=== PATIENT | female | born 1980 | race Caucasian/White ===

== ENCOUNTER 2016-08-28 18:28 | Emergency (ER) | payer SELFPAY ==
[~2016-08-28] VITALS: Ht 154.9 cm; Wt 52.9 kg
[~2016-08-28 18:28] MED LIST: DOXY100C PO; PAXI20TA PO; SUBO8MIS SL
[2016-08-28 18:34] VITALS: BP 123/73; PULSE 120; RESP 16; TEMP 99; O2SAT 97
[2016-08-28] MEDS ORDERED: BUPR4MIS SL (18:48)
[2016-08-28] MEDS ORDERED: SODIUM CHLOR 0.9% 1000 ML INJ 1,000 ML IV ONE ×2 (19:30→22:00)
[2016-08-28] MEDS ORDERED: LIDOCAINE HCL 1% PF 30 ML VIAL INFIL ONE (19:30)
[2016-08-28] MEDS ORDERED: DOXYCYCLINE INJ 100 MG in SODIUM CHLORIDE 0.9% INJ 100 ML IV ONE (19:30)
--- NOTE | 2016-08-28 19:34 | PD ---
HPI Chief Complaint: Skin Problem Time Seen by Provider: 19:28 Travel History International Travel<30 days: No Contact w/Intl Traveler<30days: No Traveled to known affect area: No History of Present Illness HPI 35-year-old female presents to the emergency department for complaint of swelling and redness and tenderness to the radial dorsal aspect of the right hand. Patient has a history of IV drug abuse. Patient was just in the emergency department 08/12/16 with an IV DA site associated abscess. Patient was placed on doxycycline. Patient reports the left forearm abscess has resolved and as she has been off antibiotic for the past 2 days the area that was slightly swollen over the proximal dorsal right thumb and hand area has not increased in size tenderness and fluctuance. Patient denies fever chills nausea vomiting ascending erythema or right axillary adenopathy. Patient continues to use IV drugs. Patient rates her pain 7/10 in intensity. Patient has multiple antibiotic allergies. Patient is typically done well on doxycycline. PFSH Past Medical History Narrative Medical IV drug abuse recurrent abscesses anxiety depression lymphoma s/p chemotherapy seizures partial ileum resection and appendectomy IV drug abuse tobacco use nursing notes reviewed Anemia: Yes Anxiety: Yes Depression: Yes Heart Rhythm Problems: Yes (HEART MURMUR) Cancer: Yes (gastric (BURKET'S LYMPHOMA)) Cardiovascular Problems: Yes Chemotherapy: Yes (Age 17 ) Diminished Hearing: No Endocrine: No Gastrointestinal Disorders: Yes Genitourinary: Yes (GENITAL HERPES) Immune Disorder: No Kidney Stones: Yes Musculoskeletal: Yes (fractured L2 and sacrum) Neurologic: Yes Psychiatric: Yes Reproductive: No Respiratory: No Immunizations Current: Yes Pneumonia: Yes Seizures: Yes (MEDICATION RELATED) Shingles: Yes Influenza Vaccination: No ?: Not LMP: ONE WEEK AGO : 0 Past Surgical History Abdominal Surgery: Yes (ILLEUM RESECTION 1998 LYMPHOMIA. REMOVED 2 1/2 FT OF SMALL INTESTINE) Appendectomy: Yes Body Medical Devices: heart murmur Other Surgery: Yes Social History Alcohol Use: No Tobacco Use: Yes (1/2 PPD) Substance Use: Yes (IV DILAUDID) Allergies-Medications (Allergen,Severity, Reaction): Coded Allergies: Azithromycin (Verified Allergy, Severe, HIVES, 08/28/16) Bactrim (Verified Allergy, Severe, SCOTTIE JOE SYNDROME, 08/28/16) Ceftazidime (Verified Allergy, Severe, SCOTTIE-JOE SYNDROME, 08/28/16) Clindamycin (Verified Allergy, Severe, HIVES, 08/28/16) Contrast Media (Verified Allergy, Severe, THROAT CLOSE, 08/28/16) Rifampin (Verified Allergy, Severe, SCOTTIE-JOE SYNDROME, 08/28/16) Primaxin (Verified Allergy, Mild, UNSURE, 08/28/16) Tramadol (Verified Allergy, Unknown, seizure with ssri, 08/28/16) Morphine (Verified Adverse Reaction, Severe, NAUSEA, 08/28/16) PT STATES SEVERE NAUSEA *MDRO Multi-Drug Resistant Organism (Verified Adverse Reaction, Unknown, 08/12/16) MRSA (hand wound) - 01/2016 Reported Meds & Prescriptions Reported Meds & Active Scripts Active Doxycycline Hyclate 100 Mg Cap 100 Mg PO BID Reported Suboxone Sublingual Film (Buprenorphine-Naloxone Sublingual Film) 4-1 Mg Film 1 Film SL BID Unique ID number required: Paxil (Paroxetine HCl) 20 Mg Tab 20 Mg PO DAILY Review of Systems Except as stated in HPI: all other systems reviewed are Neg General / Constitutional: No: Fever, Chills HENT: No: Congestion Cardiovascular: No: Chest Pain or Discomfort Respiratory: No: Shortness of Breath Gastrointestinal: No: Nausea, Vomiting, Diarrhea, Abdominal Pain Genitourinary: No: Flank Pain Musculoskeletal: No: Myalgias, Arthralgias Skin: Positive Rash, Positive Lumps Neurologic: No: Weakness Psychiatric: Positive: Substance Abuse, No: Anxiety Hematologic/Lymphatic: No: Lymph Node Enlargement Physical Exam Narrative GENERAL: Well-developed well-nourished disheveled female in no acute distress no respiratory distress SKIN: Warm and dry. HEAD: Normocephalic. EYES: No scleral icterus. No injection or drainage. NECK: Supple, trachea midline. No JVD or lymphadenopathy. CARDIOVASCULAR: Regular rate and rhythm without murmurs, gallops, or rubs. RESPIRATORY: Breath sounds equal bilaterally. No accessory muscle use. GASTROINTESTINAL: Abdomen soft, non-tender, nondistended. MUSCULOSKELETAL: No cyanosis, or edema. Attention right hand just proximal to the first MCP at the dorsum of the right hand radial aspect there is area of erythema with induration and central fluctuance range of motion is decreased secondary to pain but has intact range of motion otherwise and sensory exam intact digit capillary refill brisk and less than 2 seconds. No ascending erythema no axillary lymphadenopathy. BACK: Nontender without obvious deformity. No CVA tenderness. Data Data Last Documented VS Vital Signs Date Time Temp Pulse Resp B/P Pulse Ox O2 Delivery O2 Flow Rate FiO2 08/28/16 18:49 120 16 08/28/16 18:34 99.0 123/73 97 Orders Basic Metabolic Panel (Bmp) (08/28/16 19:28) Complete Blood Count With Diff (08/28/16 19:28) Blood Culture (08/28/16 19:28) Wound Culture And Gram Stain (08/28/16 19:28) Iv Access Insert/Monitor (08/28/16 19:28) Doxycycline Inj (Vibramycin Inj) (08/28/16 19:30) Sodium Chlor 0.9% 1000 Ml Inj (Ns 1000 M (08/28/16 19:30) Ed Urine Pregnancytest Poc (08/28/16 19:28) Lidocaine Pf 1% Inj (Xylocaine-Mpf 1% In (08/28/16 19:30) Drug Screen, Random Urine (08/28/16 19:28) Hand, Limited (2vws) (08/28/16 ) Sodium Chlor 0.9% 1000 Ml Inj (Ns 1000 M (08/28/16 22:00) Labs Laboratory Tests Test 08/28/16 08/28/16 19:45 20:20 Urine Opiates Screen NEG Urine Barbiturates Screen NEG Urine Amphetamines Screen NEG Urine Benzodiazepines Screen NEG Urine Cocaine Screen POS Urine Cannabinoids Screen NEG White Blood Count 8.3 TH/MM3 Red Blood Count 1.84 MIL/MM3 Hemoglobin 8.1 GM/DL Hematocrit 23.6 % Mean Corpuscular Volume 128.0 FL Mean Corpuscular Hemoglobin 43.8 PG Mean Corpuscular Hemoglobin 34.3 % Concent Red Cell Distribution Width 21.3 % Platelet Count 512 TH/MM3 Mean Platelet Volume 8.1 FL Neutrophils (%) (Auto) 56.8 % Lymphocytes (%) (Auto) 29.4 % Monocytes (%) (Auto) 5.4 % Eosinophils (%) (Auto) 6.8 % Basophils (%) (Auto) 1.6 % Neutrophils # (Auto) 4.8 TH/MM3 Lymphocytes # (Auto) 2.4 TH/MM3 Monocytes # (Auto) 0.4 TH/MM3 Eosinophils # (Auto) 0.6 TH/MM3 Basophils # (Auto) 0.1 TH/MM3 CBC Comment AUTO DIFF Differential Comment AUTO DIFF CONFIRMED Platelet Estimate HIGH Platelet Morphology Comment NORMAL Ovalocytes 1+ Sodium Level 139 MEQ/L Potassium Level 4.2 MEQ/L Chloride Level 105 MEQ/L Carbon Dioxide Level 26.5 MEQ/L Anion Gap 8 MEQ/L Blood Urea Nitrogen 14 MG/DL Creatinine 0.84 MG/DL Estimat Glomerular Filtration 78 ML/MIN Rate Random Glucose 76 MG/DL Calcium Level 8.3 MG/DL MDM Medical Decision Making Medical Screen Exam Complete: Yes Emergency Medical Condition: Yes Medical Record Reviewed: Yes Interpretation(s) Last Impressions Hand X-Ray 08/28/16 0000 Signed Impressions: Service Date/Time: Sunday, August 28, 2016 19:41 - CONCLUSION: Negative for radiopaque foreign body or fracture. Scottie Hook MD FACR Laboratory Tests Test 08/28/16 08/28/16 19:45 20:20 Urine Opiates Screen NEG Urine Barbiturates Screen NEG Urine Amphetamines Screen NEG Urine Benzodiazepines Screen NEG Urine Cocaine Screen POS Urine Cannabinoids Screen NEG White Blood Count 8.3 TH/MM3 Red Blood Count 1.84 MIL/MM3 Hemoglobin 8.1 GM/DL Hematocrit 23.6 % Mean Corpuscular Volume 128.0 FL Mean Corpuscular Hemoglobin 43.8 PG Mean Corpuscular Hemoglobin 34.3 % Concent Red Cell Distribution Width 21.3 % Platelet Count 512 TH/MM3 Mean Platelet Volume 8.1 FL Neutrophils (%) (Auto) 56.8 % Lymphocytes (%) (Auto) 29.4 % Monocytes (%) (Auto) 5.4 % Eosinophils (%) (Auto) 6.8 % Basophils (%) (Auto) 1.6 % Neutrophils # (Auto) 4.8 TH/MM3 Lymphocytes # (Auto) 2.4 TH/MM3 Monocytes # (Auto) 0.4 TH/MM3 Eosinophils # (Auto) 0.6 TH/MM3 Basophils # (Auto) 0.1 TH/MM3 CBC Comment AUTO DIFF Differential Comment AUTO DIFF CONFIRMED Platelet Estimate HIGH Platelet Morphology Comment NORMAL Ovalocytes 1+ Sodium Level 139 MEQ/L Potassium Level 4.2 MEQ/L Chloride Level 105 MEQ/L Carbon Dioxide Level 26.5 MEQ/L Anion Gap 8 MEQ/L Blood Urea Nitrogen 14 MG/DL Creatinine 0.84 MG/DL Estimat Glomerular Filtration 78 ML/MIN Rate Random Glucose 76 MG/DL Calcium Level 8.3 MG/DL Differential Diagnosis Abscess, cellulitis, tenosynovitis, retained foreign body, IV drug abuse Narrative Course IV access obtained patient administered IV doxycycline as well as blood cultures and specimen collected from abscess site time of I&D Please refer to PAs procedure dictation Patient here is hemodynamically stable except for tachycardia associated with cocaine abuse; long discussion with patient with significant other at bedside conducted with patient regarding her high risk for for outcome with ongoing current abusive behavior with polysubstance use and repetitive injections and repetitive secondary infections. Patient is otherwise stable at this time for outpatient management with oral antibiotic. Procedures EKG Prior to Arrival: No Diagnosis Primary Impression: Abscess of hand, right Additional Impressions: History of incision and drainage Cocaine abuse Referrals: Primary Care Physician 2 days [facility] for appointment Patient Instructions: General Instructions Additional Instructions: Discontinue substance abuse Follow-up with [facility] for detox resources Complete course of antibiotic as prescribed Take acetaminophen/Tylenol as tolerated for fever 100.4F or greater or for minor pain Return to the emergency department for any concerns or change condition Recommend two-day wound check for packing removal Follow-up with primary care provider Med/Other Pt SpecificInfo: Prescription(s) given Scripts Doxycycline Hyclate 100 Mg Pbs007 Mg PO BID #20 CAP Ref 0 Prov:Shanae Sexton MD 08/28/16 Disposition: 01 DISCHARGE HOME Condition: Stable Shanae Sexton MD Aug 28, 2016 19:34
--- NOTE | 2016-08-28 19:51 | RADHPO ---
EXAM DATE/TIME: 08/28/2016 19:41 [facility] COMPARISON: No previous studies available for comparison. INDICATIONS : Edema, base of the 1st metacarpal, foreign body MEDICAL HISTORY : None. SURGICAL HISTORY : None. ENCOUNTER: Initial ACUITY: 1 week PAIN SCORE: 6/10 LOCATION: Right thumb base FINDINGS: There is soft tissue swelling without radiopaque foreign body or fracture. CONCLUSION: Negative for radiopaque foreign body or fracture. Scottie Hook MD FACR on August 28, 2016 at 19:49 Board Certified Radiologist. This report was verified electronically.
--- NOTE | 2016-08-28 20:09 | PD ---
Physical Exam Time Seen by Provider: 20:09 Narrative I was asked by Dr. Sexton to perform an incision and drainage on this patient. Please see her note for further details. Data Data Last Documented VS Vital Signs Date Time Temp Pulse Resp B/P Pulse Ox O2 Delivery O2 Flow Rate FiO2 08/28/16 18:49 120 16 08/28/16 18:34 99.0 123/73 97 Orders Basic Metabolic Panel (Bmp) (08/28/16 19:28) Complete Blood Count With Diff (08/28/16 19:28) Blood Culture (08/28/16 19:28) Wound Culture And Gram Stain (08/28/16 19:28) Iv Access Insert/Monitor (08/28/16 19:28) Doxycycline Inj (Vibramycin Inj) (08/28/16 19:30) Sodium Chlor 0.9% 1000 Ml Inj (Ns 1000 M (08/28/16 19:30) Ed Urine Pregnancytest Poc (08/28/16 19:28) Lidocaine Pf 1% Inj (Xylocaine-Mpf 1% In (08/28/16 19:30) Drug Screen, Random Urine (08/28/16 19:28) Hand, Limited (2vws) (08/28/16 ) Labs Laboratory Tests Test 08/28/16 19:45 Urine Barbiturates Screen NEG Urine Amphetamines Screen NEG Urine Benzodiazepines Screen NEG Urine Cannabinoids Screen NEG MDM Medical Record Reviewed: Yes Supervised Visit with AP: Yes Procedures Procedure Narrative INCISION AND DRAINAGE OF ABSCESS: The area was prepped and was sterilely draped. A subcutaneous wheal of 1% lidocaine with epinephrine with a total number 3 mL was used to anesthetize the area properly. A number 11 scalpel was used to make a 1 cm incision across the area of the abscess. The abscess was drained, complex loculations were broken down, and irrigated with normal saline. Cultures were obtained. Sterile dressing applied. Suly Jackson Aug 28, 2016 20:09
[2016-08-28 20:39] LABS: AMPHETAMINE, URINE NEG (NEG); BARBITURATES, URINE NEG (NEG)
[2016-08-28 20:46] LABS: COCAINE, URINE POS (NEG)
[2016-08-28 20:48] LABS: BICARBONATE 26.5 MEQ/L (21.0-32.0)
[2016-08-28 20:52] LABS: AUTOMATED NEUTROPHIL # 4.8 TH/MM3 (1.8-7.7); BASOPHIL # 0.1 TH/MM3 (0-0.2); BASOPHIL % 1.6 % (0.0-2.0); EOSINOPHIL # 0.6 TH/MM3 (0-0.4); EOSINOPHIL % 6.8 % (0.0-4.0); HEMATOCRIT 23.6 % (35.0-46.0); LYMPH % 29.4 % (9.0-44.0); LYMPHOCYTE # 2.4 TH/MM3 (1.0-4.8); MEAN CORPUSCULAR HEMOGLOBIN 43.8 PG (27.0-34.0); MEAN CORPUSCULAR HGB CONC 34.3 % (32.0-36.0); MONO % 5.4 % (0.0-8.0); NEUT % 56.8 % (16.0-70.0); PLATELET COUNT 512 TH/MM3 (150-450); RED BLOOD COUNT 1.84 MIL/MM3 (4.00-5.30); RED CELL DISTRIBUTION WIDTH 21.3 % (11.6-17.2); WHITE BLOOD COUNT 8.3 TH/MM3 (4.0-11.0)
[2016-08-28 20:53] LABS: POTASSIUM 4.2 MEQ/L (3.5-5.1)
[2016-08-28 20:55] LABS: HEMO FLAGS AUTO DIFF
[2016-08-28 21:13] LABS: OVALOCYTES 1+ (NORMAL); PLATELET ESTIMATE SMEAR HIGH (NORMAL); PLATELET MORPHOLOGY NORMAL (NORMAL); SCAN/DIFF AUTO DIFF CONFIRMED
[2016-08-28] MEDS ORDERED: DOXY100C PO (22:08)
[2016-08-28 22:14] VITALS: BP 104/59; PULSE 110; RESP 20; O2SAT 98
[2016-08-29 00:07] VITALS: BP 120/74; PULSE 95; RESP 18; O2SAT 98
== END 2016-08-29 00:10 | disposition home or self-care (01) ==
LOC: PHEFT 18:28
DX: L02.511 Cutaneous abscess of right hand (principal); B95.5 Unspecified streptococcus as the cause of diseases classified elsewhere; F14.10 Cocaine abuse, uncomplicated; F17.210 Nicotine dependence, cigarettes, uncomplicated
CPT/HCPCS: 10060; 73120; 80048; 80307; 84703; 85025; 87040; 87070; 96374; 99283; J7030; 87205

== ENCOUNTER 2016-09-01 20:12 | Emergency (ER) | payer SELFPAY ==
[~2016-09-01] VITALS: Ht 165.1 cm; Wt 52.2 kg
[~2016-09-01 20:12] MED LIST changes: +BUPR4MIS SL; -SUBO8MIS SL
[2016-09-01 20:16] VITALS: BP 103/68; PULSE 111; RESP 16; TEMP 98.8; O2SAT 99
[2016-09-01] MEDS ORDERED: LIDOCAINE 2%/EPINEPHrine 1:100,000 30ML MDV INFIL ONE (20:30)
--- NOTE | 2016-09-01 20:41 | PD ---
HPI Chief Complaint: Wound/Suture/Staple Re-Check Time Seen by Provider: 20:20 Travel History International Travel<30 days: No Contact w/Intl Traveler<30days: No Traveled to known affect area: No History of Present Illness HPI Patient is a 35-year-old female who presented to the emergency for evaluation of a right hand abscess. Patient was seen and evaluated in the emergency department for days ago, she states an I&D was performed at that time. She reports compliance with her prescribed antibiotics but states that she's had increased swelling for the last 24-48 hours. She states that if she presses on her hand she can express puslike fluid. She denies any fevers or chills, patient does endorse a history of IV drug use. PFSH Past Medical History Anemia: Yes Anxiety: Yes Depression: Yes Heart Rhythm Problems: Yes (HEART MURMUR) Cancer: Yes (gastric (BURKET'S LYMPHOMA)) Cardiovascular Problems: Yes Chemotherapy: Yes (Age 17 ) Diminished Hearing: No Endocrine: No Gastrointestinal Disorders: Yes Genitourinary: Yes (GENITAL HERPES) Immune Disorder: No Kidney Stones: Yes Musculoskeletal: Yes (fractured L2 and sacrum) Neurologic: Yes Psychiatric: Yes Reproductive: No Respiratory: No Immunizations Current: Yes Pneumonia: Yes Seizures: Yes (MEDICATION RELATED) Shingles: Yes ?: Not : 0 Past Surgical History Abdominal Surgery: Yes (ILLEUM RESECTION 1998 LYMPHOMIA. REMOVED 2 1/2 FT OF SMALL INTESTINE) Appendectomy: Yes Body Medical Devices: heart murmur Other Surgery: Yes Social History Alcohol Use: No Tobacco Use: Yes (1/2 PPD) Substance Use: Yes (IV DILAUDID) Allergies-Medications (Allergen,Severity, Reaction): Coded Allergies: Azithromycin (Verified Allergy, Severe, HIVES, 09/01/16) Bactrim (Verified Allergy, Severe, NASIR JOE SYNDROME, 09/01/16) Ceftazidime (Verified Allergy, Severe, NASIR-JOE SYNDROME, 09/01/16) Clindamycin (Verified Allergy, Severe, HIVES, 09/01/16) Contrast Media (Verified Allergy, Severe, THROAT CLOSE, 09/01/16) Rifampin (Verified Allergy, Severe, NASIR-JOE SYNDROME, 09/01/16) Primaxin (Verified Allergy, Mild, UNSURE, 09/01/16) Tramadol (Verified Allergy, Unknown, seizure with ssri, 09/01/16) Morphine (Verified Adverse Reaction, Severe, NAUSEA, 09/01/16) PT STATES SEVERE NAUSEA *MDRO Multi-Drug Resistant Organism (Verified Adverse Reaction, Unknown, ) MRSA (hand wound) - 01/2016 Reported Meds & Prescriptions Reported Meds & Active Scripts Active Doxycycline Hyclate 100 Mg Cap 100 Mg PO BID Doxycycline Hyclate 100 Mg Cap 100 Mg PO BID Reported Suboxone Sublingual Film (Buprenorphine-Naloxone Sublingual Film) 4-1 Mg Film 1 Film SL BID Unique ID number required: Paxil (Paroxetine HCl) 20 Mg Tab 20 Mg PO DAILY Review of Systems Except as stated in HPI: all other systems reviewed are Neg Skin: Positive Other (right hand abscess) Physical Exam Narrative GENERAL: Well-nourished, well-developed patient. SKIN: Warm and dry. Mild erythema noted to the dorsal aspect of the right hand more so over the first and second MCP. Area is fluctuant, warm to the touch. Purulent drainage noted. HEAD: Normocephalic. EYES: No scleral icterus. No injection or drainage. NECK: Supple, trachea midline. No JVD or lymphadenopathy. CARDIOVASCULAR: Regular rate and rhythm without murmurs, gallops, or rubs. RESPIRATORY: Breath sounds equal bilaterally. No accessory muscle use. GASTROINTESTINAL: Abdomen soft, non-tender, nondistended. MUSCULOSKELETAL: No cyanosis. Full range of motion in upper extremities. 5/5 muscle strength. Patient is neurovascularly intact. BACK: Nontender without obvious deformity. No CVA tenderness. Data Data Last Documented VS Vital Signs Date Time Temp Pulse Resp B/P Pulse Ox O2 Delivery O2 Flow Rate FiO2 09/01/16 20:16 98.8 111 16 103/68 99 Room Air Orders Lidocai-Epi 2%-1:100,000 Inj (Xylocaine- (09/01/16 20:30) MDM Medical Decision Making Medical Screen Exam Complete: Yes Emergency Medical Condition: Yes Medical Record Reviewed: Yes Interpretation(s) Vital Signs Date Time Temp Pulse Resp B/P Pulse Ox O2 Delivery O2 Flow Rate FiO2 09/01/16 20:16 98.8 111 16 103/68 99 Room Air Differential Diagnosis Abscess versus cellulitis versus sepsis versus other Narrative Course Patient is a 35-year-old female who presented to him for reevaluation of an abscess to her right hand. Patient was seen and evaluated by Dr. Sexton on 08/28. For Darshan was asked to also see patient to assess for symptoms resolving. Dr. Sexton agrees that cellulitis appears to be resolving. Due to the fluctuance and drainage, and I&D will be performed once again. Please see procedure report. She was mildly tachycardic on arrival, pulse was reassessed at 97 prior to discharge. Patient is encouraged to complete full course of antibiotics as previously prescribed. She was advised that she will need to return to the emergency department 48 hours for reevaluation and for packing to be removed. She is advised to return to emergency department sooner for any new or worsening symptoms or signs of infection. Patient verbalized understanding of these instructions. She was further encouraged to avoid any further IV drug use. Patient is stable for discharge. Records reviewed from patient's previous emergency department visit. Procedures Procedure Narrative After the risks and benefits were discussed the following procedure was performed: INCISION AND DRAINAGE OF ABSCESS: The area was prepped and was sterilely draped. A subcutaneous wheal of 2% Xylocaine with a total number 2 mL was used to anesthetize the area. The area was properly anesthetized. A number 11 scalpel was used to make a 1 cm incision across the area of the abscess, and the same incision site as previous I&D. The abscess was drained an irrigated with normal saline. Quarter inch iodoform packing was placed in the wound. Sterile dressing applied. Patient advised to have packing removed in two days. Diagnosis Primary Impression: Abscess of hand, right Referrals: Primary Care Physician Patient Instructions: Abscess Follow-up (ED), Abscess Incision and Drainage (ED ), General Instructions Additional Instructions: Continue antibiotics as previously prescribed Return to emergency department in 48 hours to have packing removed Return sooner for any new or worsening symptoms Med/Other Pt SpecificInfo: No Change to Meds Disposition: 01 DISCHARGE HOME Condition: Stable Corazon Smith Sep 01, 2016 20:41
== END 2016-09-01 20:52 | disposition home or self-care (01) ==
LOC: PHEFT 20:12
DX: L02.511 Cutaneous abscess of right hand (principal); D64.9 Anemia, unspecified; F17.210 Nicotine dependence, cigarettes, uncomplicated
CPT/HCPCS: 10061

== ENCOUNTER 2016-11-18 21:07 | Emergency (ER) | payer SELFPAY ==
[~2016-11-18] VITALS: Ht 165.1 cm; Wt 50.1 kg
[2016-11-18 21:14] VITALS: BP 99/71; PULSE 105; RESP 16; TEMP 98.6; O2SAT 99
[2016-11-18] MEDS ORDERED: PENICILLIN V POTASSIUM 500 MG TAB PO ONE (22:30)
--- NOTE | 2016-11-18 22:30 | PD ---
HPI Chief Complaint: Oral / Dental Pain or Problem Time Seen by Provider: 22:29 Travel History International Travel<30 days: No Contact w/Intl Traveler<30days: No Traveled to known affect area: No History of Present Illness HPI 36-year-old female presents to the emergency department for evaluation of left upper dental pain and facial swelling for 1 day. Patient states that she has poor dentition secondary to chemotherapy at age 17 and has frequent dental infections. States that she thinks she bit down on something hard injuring her already decaying left upper tooth. States she's had swelling and pain in this location since this occurred. Denies any fever, chills, nausea, vomiting, difficulty swallowing. States she has an appointment with a dentist next week. States that she has a remote history of Burkitt's lymphoma with chemotherapy and a history of IV opiate abuse, has been clean for one year. Denies , last menstrual period 2 weeks ago. No other complaints. PFSH Past Medical History Anemia: Yes Anxiety: Yes Depression: Yes Heart Rhythm Problems: Yes (HEART MURMUR) Cancer: Yes (gastric (BURKET'S LYMPHOMA)) Cardiovascular Problems: Yes Chemotherapy: Yes (Age 17 ) Diminished Hearing: No Endocrine: No Gastrointestinal Disorders: Yes Genitourinary: Yes (GENITAL HERPES) Immune Disorder: No Kidney Stones: Yes Musculoskeletal: Yes (fractured L2 and sacrum) Neurologic: Yes Psychiatric: Yes Reproductive: No Respiratory: No Immunizations Current: Yes Pneumonia: Yes Seizures: Yes (MEDICATION RELATED) Shingles: Yes Tetanus Vaccination: < 5 Years Influenza Vaccination: No ?: Not : 0 Past Surgical History Abdominal Surgery: Yes (ILLEUM RESECTION 1998 LYMPHOMIA. REMOVED 2 1/2 FT OF SMALL INTESTINE) Appendectomy: Yes Body Medical Devices: heart murmur Other Surgery: Yes Social History Alcohol Use: No Tobacco Use: Yes (2 PPD) Substance Use: Yes (IV DILAUDID) Allergies-Medications (Allergen,Severity, Reaction): Coded Allergies: Azithromycin (Verified Allergy, Severe, HIVES, 11/18/16) Bactrim (Verified Allergy, Severe, NASIR JOE SYNDROME, 11/18/16) Ceftazidime (Verified Allergy, Severe, NASIR-JOE SYNDROME, 11/18/16) Clindamycin (Verified Allergy, Severe, HIVES, 11/18/16) Contrast Media (Verified Allergy, Severe, THROAT CLOSE, 11/18/16) Rifampin (Verified Allergy, Severe, NASIR-JOE SYNDROME, 11/18/16) Primaxin (Verified Allergy, Mild, UNSURE, 11/18/16) Tramadol (Verified Allergy, Unknown, seizure with ssri, 11/18/16) Morphine (Verified Adverse Reaction, Severe, NAUSEA, 11/18/16) PT STATES SEVERE NAUSEA *MDRO Multi-Drug Resistant Organism (Verified Adverse Reaction, Unknown, ) MRSA (hand wound) - 01/2016 Reported Meds & Prescriptions Reported Meds & Active Scripts Active Penicillin Vk (Penicillin V Potassium) 250 Mg Tab 500 Mg PO Q6H 10 Days Reported Suboxone Sublingual Film (Buprenorphine-Naloxone Sublingual Film) 4-1 Mg Film 1 Film SL BID Unique ID number required: Paxil (Paroxetine HCl) 20 Mg Tab 20 Mg PO DAILY Review of Systems Except as stated in HPI: all other systems reviewed are Neg Physical Exam Narrative GENERAL: Well-nourished and well-developed pleasant female patient in no acute distress who is nontoxic appearing. SKIN: Warm and dry. HEAD: Normocephalic and atraumatic. Swelling over her left maxillary region. EYES: No injection, drainage, or hyphema noted. PERRLA. EOMI. ENT: No nasal drainage noted. Oropharynx is clear and the TMs are normal with good landmarks. DENTAL: Poor dentition. Swelling of the gingiva noted over upper left teeth 9 through 11. NECK: Supple and the trachea is midline. CARDIOVASCULAR: Regular rate and rhythm. RESPIRATORY: Breath sounds are equal bilaterally with no accessory muscle use, wheezing, rhonchi, or crackles. MUSCULOSKELETAL: No obvious deformities, swelling, cyanosis, or ecchymosis is present throughout the upper and lower extremities. Patient has full range of motion without any signs of neurovascular compromise. NEUROLOGICAL: Awake, alert, and oriented. Normal speech and gait. Cranial nerves are grossly intact. Data Data Last Documented VS Vital Signs Date Time Temp Pulse Resp B/P Pulse Ox O2 Delivery O2 Flow Rate FiO2 11/18/16 21:14 98.6 105 16 99/71 99 Orders Penicillin V Potassium (Veetids) (11/18/16 22:30) MDM Medical Decision Making Medical Screen Exam Complete: Yes Emergency Medical Condition: Yes Differential Diagnosis Dental abscess versus dental caries versus pulpitis Narrative Course 36-year-old female presents to the emergency department for evaluation of left sided facial swelling and dental pain. Patient is afebrile. Patient is slightly tachycardic with a heart rate of 105 bpm, per the patient this is chronic for her. Her blood pressure is 99/71, I reviewed the EMR which shows this is also a typical blood pressure for her. She has a left upper dental abscess with associated facial swelling. She has multiple drug allergies. She' ll be placed on penicillin VK for her dental abscess. She is given her first dose now. She is instructed to follow-up with her dentist as scheduled. Discussed with the patient that she should return immediately to the emergency department should she have any worsening swelling, fever, or difficulty swallowing. Patient verbalizes understanding and agreement with treatment plan. Diagnosis Primary Impression: Dental abscess Referrals: Dentist Patient Instructions: Dental Abscess (ED), General Instructions Additional Instructions: [id number] Tylenol or ibuprofen directed on the box as needed for pain. Take medications as prescribed with food and a full glass of water. Follow-up with your Dentist. Return to the ED for any acute worsening of symptoms. Med/Other Pt SpecificInfo: Prescription(s) given Scripts Penicillin V Potassium (Penicillin Vk)250 Mg [id number] Mg PO Q6H 10 Days Ref 0 Prov:Shanae Sexton MD 11/18/16 Disposition: 01 DISCHARGE HOME Condition: Stable Jimena Mckeon Nov 18, 2016 22:30
[2016-11-18] MEDS ORDERED: PENI250T59 PO (22:36)
== END 2016-11-18 22:40 | disposition home or self-care (01) ==
LOC: PHEFT 21:07
DX: K04.7 Periapical abscess without sinus (principal); D64.9 Anemia, unspecified; R01.1 Cardiac murmur, unspecified; F17.210 Nicotine dependence, cigarettes, uncomplicated
CPT/HCPCS: 99282

== ENCOUNTER 2017-01-19 15:08 | Inpatient (IN) | payer SELFPAY ==
[2017-01-19] VITALS (8 sets, daily range): BP systolic 100–114; BP diastolic 54–67; PULSE 90–121; RESP 16–18; TEMP 98.3–99.4; O2SAT 94–100
[~2017-01-19] VITALS: Ht 165.1 cm; Wt 49.2 kg
[~2017-01-19 15:08] MED LIST changes: -DOXY100C PO; +PENI250T59 PO
[2017-01-19] MEDS ORDERED: VANCOMYCIN INJ 1,000 MG in SODIUM CHLOR 0.9% 250 ML INJ 250 ML IV STA (15:19)
[2017-01-19] MEDS ORDERED: PIPERACIL-TAZO 4.5 GM PREMIX 100 ML IV STA (15:19)
[2017-01-19] MEDS ORDERED: SODIUM CHLOR 0.9% 1000 ML INJ 1,000 ML IV ONE (15:19)
--- NOTE | 2017-01-19 15:25 | PD ---
HPI Chief Complaint: Edema Time Seen by Provider: 15:19 Travel History International Travel<30 days: No Contact w/Intl Traveler<30days: No Traveled to known affect area: No History of Present Illness HPI 36-year-old female patient with history of Burkitt's lymphoma, status post small intestine resection, IV drug use with previous right arm abscess requiring surgery, presents to the ER today because she states that she had shot up in the right hand several days ago and has been having increased swelling, pain. She denies any fevers or any other issues. Pain is currently rated a 10 out of 10. Modifying Factors: None Associated Signs & Symptoms: Right hand cellulitis, abscess questionable Risk Factors: IV drug use PFSH Past Medical History Hx Anticoagulant Therapy: No Anemia: Yes Anxiety: Yes Depression: Yes Heart Rhythm Problems: Yes (HEART MURMUR) Cancer: Yes (gastric (BURKET'S LYMPHOMA)) Cardiovascular Problems: Yes Chemotherapy: Yes (Age 17 ) Diabetes: No Diminished Hearing: No Endocrine: No Gastrointestinal Disorders: Yes Genitourinary: Yes (GENITAL HERPES) Immune Disorder: No Kidney Stones: Yes Musculoskeletal: Yes (fractured L2 and sacrum) Neurologic: Yes Psychiatric: Yes Reproductive: No Respiratory: No Immunizations Current: Yes Pneumonia: Yes Seizures: Yes (MEDICATION RELATED) Shingles: Yes ?: Not : 0 Past Surgical History Abdominal Surgery: Yes (ILLEUM RESECTION 1998 LYMPHOMIA. REMOVED 2 1/2 FT OF SMALL INTESTINE) Appendectomy: Yes Body Medical Devices: heart murmur Other Surgery: Yes Social History Alcohol Use: No Tobacco Use: Yes (1/2 PPD) Substance Use: Yes (IV DILAUDID) Allergies-Medications (Allergen,Severity, Reaction): Coded Allergies: Azithromycin (Verified Allergy, Severe, HIVES, 01/19/17) Bactrim (Verified Allergy, Severe, NASIR JOE SYNDROME, 01/19/17) Ceftazidime (Verified Allergy, Severe, NASIR-JOE SYNDROME, 01/19/17) Clindamycin (Verified Allergy, Severe, HIVES, 01/19/17) Contrast Media (Verified Allergy, Severe, THROAT CLOSE, 01/19/17) Rifampin (Verified Allergy, Severe, NASIR-JOE SYNDROME, 01/19/17) Primaxin (Verified Allergy, Mild, UNSURE, 01/19/17) Tramadol (Verified Allergy, Unknown, seizure with ssri, 01/19/17) Morphine (Verified Adverse Reaction, Severe, NAUSEA, 01/19/17) PT STATES SEVERE NAUSEA *MDRO Multi-Drug Resistant Organism (Verified Adverse Reaction, Unknown, ) MRSA (hand wound) - 01/2016 Reported Meds & Prescriptions Reported Meds & Active Scripts Active Reported Paxil (Paroxetine HCl) 20 Mg Tablet 1 Tab PO DAILY Suboxone Sublingual Film (Buprenorphine-Naloxone Sublingual Film) 8-2 Mg Film 1 Film SL BID Unique ID number required: Review of Systems Except as stated in HPI: all other systems reviewed are Neg Physical Exam Narrative GENERAL: Well-developed young white female patient currently in mild distress. Awake and oriented 3. SKIN: Focused skin assessment warm/dry. HEAD: Atraumatic. Normocephalic. EYES: Pupils equal and round. No scleral icterus. No injection or drainage. ENT: No nasal bleeding or discharge. Mucous membranes pink and moist. NECK: Trachea midline. No JVD. CARDIOVASCULAR: Regular rate and rhythm. No murmur appreciated. RESPIRATORY: No accessory muscle use. Clear to auscultation. Breath sounds equal bilaterally. GASTROINTESTINAL: Abdomen soft, non-tender, nondistended. Hepatic and splenic margins not palpable. MUSCULOSKELETAL: No obvious deformities. No clubbing. No cyanosis. No edema. Right hand: There is notable erythema and edema over the entire hand, there is some fluctuance and tenderness notable over the anatomical snuffbox area measuring about 2 cm. NEUROLOGICAL: Awake and alert. No obvious cranial nerve deficits. Motor grossly within normal limits. Normal speech. PSYCHIATRIC: Appropriate mood and affect; insight and judgment normal. Data Data Last Documented VS Vital Signs Date Time Temp Pulse Resp B/P Pulse Ox O2 Delivery O2 Flow Rate FiO2 01/19/17 17:12 90 18 103/56 94 Room Air 01/19/17 15:10 99.0 Orders Complete Blood Count With Diff (01/19/17 15:19) Comprehensive Metabolic Panel (01/19/17 15:19) Lactic Acid Sepsis Protocol (01/19/17 15:19) Blood Culture (01/19/17 15:19) Blood Glucose (01/19/17 15:19) Ecg Monitoring (01/19/17 15:19) Iv Access Insert/Monitor (01/19/17 15:19) Oximetry (01/19/17 15:19) Oxygen Administration (01/19/17 15:19) Piperacil-Tazo 4.5 Gm Premix (Zosyn 4.5 (01/19/17 15:19) Vancomycin Inj (Vancomycin Inj) (01/19/17 15:19) Sodium Chlor 0.9% 1000 Ml Inj (Ns 1000 M (01/19/17 15:19) Lidocaine 1% Inj (50 Ml) (Xylocaine 1% I (01/19/17 17:15) Type And Screen (01/19/17 17:50) Red Blood Cells (Rbc) (01/19/17 17:50) Blood Product Administration .UPON TRANSFUSION (01/19/17 17:50) Sodium Chlor 0.9% 250 Ml Inj (Ns 250 Ml (01/19/17 18:00) Pathologist Smear Review (01/19/17 16:55) Labs Laboratory Tests Test 01/19/17 01/19/17 16:53 16:55 Lactic Acid Level 0.7 mmol/L White Blood Count 5.3 TH/MM3 Red Blood Count 1.15 MIL/MM3 Hemoglobin 5.0 GM/DL Hematocrit 14.7 % Mean Corpuscular Volume 127.1 FL Mean Corpuscular Hemoglobin 43.2 PG Mean Corpuscular Hemoglobin 34.0 % Concent Red Cell Distribution Width 21.8 % Platelet Count 256 TH/MM3 Mean Platelet Volume 7.7 FL Neutrophils (%) (Auto) 57.7 % Lymphocytes (%) (Auto) 34.6 % Monocytes (%) (Auto) 4.1 % Eosinophils (%) (Auto) 3.1 % Basophils (%) (Auto) 0.5 % Neutrophils # (Auto) 3.1 TH/MM3 Lymphocytes # (Auto) 1.8 TH/MM3 Monocytes # (Auto) 0.2 TH/MM3 Eosinophils # (Auto) 0.2 TH/MM3 Basophils # (Auto) 0.0 TH/MM3 CBC Comment AUTO DIFF Differential Comment AUTO DIFF CONFIRMED Tear Drop Cells 2+ Ovalocytes 1+ Stomatocytes 1+ Helmet Cells 1+ Keratocytes 1+ Sodium Level 140 MEQ/L Potassium Level 3.5 MEQ/L Chloride Level 105 MEQ/L Carbon Dioxide Level 27.0 MEQ/L Anion Gap 8 MEQ/L Blood Urea Nitrogen 10 MG/DL Creatinine 0.72 MG/DL Estimat Glomerular Filtration 92 ML/MIN Rate Random Glucose 92 MG/DL Calcium Level 8.3 MG/DL Total Bilirubin 0.6 MG/DL Aspartate Amino Transf 104 U/L (AST/SGOT) Alanine Aminotransferase 72 U/L (ALT/SGPT) Alkaline Phosphatase 89 U/L Total Protein 7.3 GM/DL Albumin 4.1 GM/DL MDM Medical Decision Making Medical Screen Exam Complete: Yes Emergency Medical Condition: Yes Medical Record Reviewed: Yes Interpretation(s) Laboratory Tests Test 01/19/17 16:55 Red Blood Count 1.15 MIL/MM3 (4.00-5.30) Hemoglobin 5.0 GM/DL (11.6-15.3) Hematocrit 14.7 % (35.0-46.0) Mean Corpuscular Volume 127.1 FL (80.0-100.0) Mean Corpuscular Hemoglobin 43.2 PG (27.0-34.0) Red Cell Distribution Width 21.8 % (11.6-17.2) Tear Drop Cells 2+ (NORMAL) Ovalocytes 1+ (NORMAL) Stomatocytes 1+ (NORMAL) Helmet Cells 1+ (NORMAL) Keratocytes 1+ (NORMAL) Calcium Level 8.3 MG/DL (8.5-10.1) Aspartate Amino Transf 104 U/L (15-37) (AST/SGOT) Alanine Aminotransferase 72 U/L (10-53) (ALT/SGPT) Differential Diagnosis Right hand cellulitis, possible abscessrule out sepsis Narrative Course Patient was discussed with Dr. Rizo who states that he does not feel that drainage of the abscess at the anatomic snuff box area should be a problem as long as we stay proximal. I&D was done by me during significant amount a pot. IV and spouse were initiated in the ER after cultures were taken. Patient's lab work also shows that she is significantly anemic. She denies any bleeding episodes or black stools. It is unclear why she is anemic. Blood transfusion was ordered for the patient. And at this point, my plan would be to admit the patient for further treatment. Case is discussed with Dr. Valenzuela for admission. Procedures Procedure Narrative INCISION AND DRAINAGE OF ABSCESS: The area was prepped and was sterilely draped. A subcutaneous wheal of % Xylocaine 1% with a total number 2 mL was used to anesthetize the area. The area was properly anesthetized. A number small scalpel was used to make a 2-cm incision across the area of the abscess. Cultures were obtained. The abscess was drained an irrigated with normal saline. Quarter inch iodoform packing was placed in the wound. Sterile dressing applied. Patient advised to have packing removed in two days. Diagnosis Primary Impression: Symptomatic anemia Additional Impression: Abscess of hand, right Admitting Information Admitting Physician Requests: Admit Moon Simon MD Jan 19, 2017 15:25
[2017-01-19] MEDS ORDERED: PAXI20TA10 PO (15:37)
[2017-01-19] MEDS ORDERED: SUBO8MIS SL (15:37)
[2017-01-19 17:11] LABS: AUTOMATED NEUTROPHIL # 3.1 TH/MM3 (1.8-7.7); BASOPHIL % 0.5 % (0.0-2.0); EOSINOPHIL # 0.2 TH/MM3 (0-0.4); EOSINOPHIL % 3.1 % (0.0-4.0); LYMPH % 34.6 % (9.0-44.0); LYMPHOCYTE # 1.8 TH/MM3 (1.0-4.8); MEAN CELL VOLUME 127.1 FL (80.0-100.0); MEAN CORPUSCULAR HEMOGLOBIN 43.2 PG (27.0-34.0); MONO % 4.1 % (0.0-8.0); NEUT % 57.7 % (16.0-70.0); PLATELET COUNT 256 TH/MM3 (150-450); RED BLOOD COUNT 1.15 MIL/MM3 (4.00-5.30); RED CELL DISTRIBUTION WIDTH 21.8 % (11.6-17.2); WHITE BLOOD COUNT 5.3 TH/MM3 (4.0-11.0)
[2017-01-19] MEDS ORDERED: LIDOCAINE HCL 1% 50 ML VIAL INFIL ONE (17:15)
[2017-01-19 17:19] LABS: CHLORIDE 105 MEQ/L (98-107); POTASSIUM 3.5 MEQ/L (3.5-5.1); SODIUM (NA) 140 MEQ/L (136-145)
[2017-01-19 17:22] LABS: HEMO FLAGS AUTO DIFF
[2017-01-19 17:23] LABS: ANION GAP 8 MEQ/L (5-15); BLOOD UREA NITROGEN 10 MG/DL (7-18)
[2017-01-19 17:24] LABS: HEMATOCRIT 14.7 % (35.0-46.0)
--- NOTE | 2017-01-19 17:24 | PD ---
Physical Exam Date Seen by Provider: Jan 19, 2017 Data Data Last Documented VS Vital Signs Date Time Temp Pulse Resp B/P Pulse Ox O2 Delivery O2 Flow Rate FiO2 01/19/17 17:12 90 18 103/56 94 Room Air 01/19/17 15:10 99.0 Orders Complete Blood Count With Diff (01/19/17 15:19) Comprehensive Metabolic Panel (01/19/17 15:19) Lactic Acid Sepsis Protocol (01/19/17 15:19) Blood Culture (01/19/17 15:19) Blood Glucose (01/19/17 15:19) Ecg Monitoring (01/19/17 15:19) Iv Access Insert/Monitor (01/19/17 15:19) Oximetry (01/19/17 15:19) Oxygen Administration (01/19/17 15:19) Piperacil-Tazo 4.5 Gm Premix (Zosyn 4.5 (01/19/17 15:19) Vancomycin Inj (Vancomycin Inj) (01/19/17 15:19) Sodium Chlor 0.9% 1000 Ml Inj (Ns 1000 M (01/19/17 15:19) Lidocaine 1% Inj (50 Ml) (Xylocaine 1% I (01/19/17 17:15) Labs Laboratory Tests Test 01/19/17 16:55 Sodium Level 140 MEQ/L Potassium Level 3.5 MEQ/L Chloride Level 105 MEQ/L MDM Supervised Visit with AP: No Procedures Procedure Narrative PERIPHERAL IV: The indication for the procedure was inability of the nursing staff to obtain a peripheral IV. Multiple attempts have been made by the patient's nurse and by the patient's physician. The patient was properly identified. Several attempts were required on my part as well. A left EJ line was eventually successfully obtained using a 20-gauge Angiocath. We were able to obtain blood for laboratory testing. The line flushes well. She tolerated the procedure well without complication. Maira Segundo MD Jan 19, 2017 17:24
[2017-01-19 17:26] LABS: ALT (GPT) 72 U/L (10-53); AST (GOT) 104 U/L (15-37); GLOMERULAR FILTRATION RATE 92 ML/MIN (>89)
[2017-01-19 17:28] LABS: TOTAL BILIRUBIN ADULT 0.6 MG/DL (0.2-1.0)
[2017-01-19 17:29] LABS: ALKALINE PHOSPHATASE 89 U/L (45-117)
[2017-01-19] MEDS ORDERED: SODIUM CHLOR 0.9% 250 ML INJ 250 ML IV ONE (18:00)
[2017-01-19 18:06] LABS: KERATOCYTES 1+ (NORMAL); OVALOCYTES 1+ (NORMAL); STOMATOCYTES 1+ (NORMAL); TEARDROP RBCS 2+ (NORMAL)
[2017-01-19 18:08] LABS: HELMET CELLS 1+ (NORMAL); SCAN/DIFF AUTO DIFF CONFIRMED
[2017-01-19] MEDS ORDERED: NALOXONE HCL 0.4 MG/ML AMP IV PRN (18:15)
[2017-01-19] MEDS ORDERED: SODIUM CHLORIDE 0.9% FLUSH 10 ML FLUSH IV FLUSH PRN (18:15)
[2017-01-19] MEDS ORDERED: Vancomycin Consult Pharmacy 1 EA OTHER SCH (18:30)
--- NOTE | 2017-01-19 18:42 | HHI.HP ---
[facility] Service [facility] Primary Care Physician No Primary Care Physician Admission Diagnosis symtomatic anemia/right hand cellulitis/abscess Diagnoses: (1) Symptomatic anemia Diagnosis: Principal (2) Abscess of hand, right Diagnosis: Principal (3) Cocaine abuse Diagnosis: Secondary (4) Elevated liver enzymes Diagnosis: Secondary Chief Complaint: Right hand pain Travel History International Travel<30 Days: No Contact w/Intl Traveler <30 Da: No Traveled to Known Affected Are: No History of Present Illness Written by Garfield Alvarado, acting as scribe for Dr. Valenzuela on 01/19/17 at 18: 56. 36-year-old female with known history of IV drug use, Burkitt's lymphoma, recurrent ER visits for multiple abscesses in treatments who presented to hospital today because of right hand pain and swelling. Patient states that it started 3 days ago where she relapsed and was injecting Dilaudid. She states that the swelling progressively got worse with pain so she came to the hospital for evaluation. Emergency room physician called hand specialist to notify her that incision and drainage could be performed in the emergency department. ER physician did perform incision and drainage. Patient indicates that she was experiencing numbness and tingling in her hand and has significantly improved after I&D was performed. Patient did have blood work performed in emergency department found to have significant anemia with hemoglobin 5.0. Patient indicates that she has had bloody stools maroon in color with clots over the last 34 months. She states that she has not gone to a doctor for evaluation of that at this time. She indicates that her last period was one month ago. She has had nausea without any vomiting. She does get frequent night sweats. Patient will be admitted for further evaluation management. Review of Systems Constitutional: DENIES: Diaphoretic episodes, Fatigue, Fever, Weight gain, Weight loss, Chills, Dizziness, Change in appetite, Night Sweats Eyes: DENIES: Blurred vision, Diplopia, Eye inflammation, Eye pain, Vision loss , Double Vision Ears, nose, mouth, throat: DENIES: Vertigo, Nasal discharge, Throat pain, Ear Pain, Running Nose, Sinus Pain Respiratory: DENIES: Apneas, Cough, Snoring, Wheezing, Hemoptysis, Sputum production, Shortness of breath Cardiovascular: DENIES: Chest pain, Palpitations, Syncope, Dyspnea on Exertion , PND, Lower Extremity Edema, Orthopnea, Claudication Gastrointestinal: COMPLAINS OF: Bloody stools, DENIES: Abdominal pain, Black stools, Constipation, Diarrhea, Nausea, Vomiting, Difficulty Swallowing, Anorexia Neurologic: DENIES: Abnormal gait, Headache, Localized weakness, Paresthesias, Seizures, Speech Problems, Tremor, Poor Balance Psychiatric: COMPLAINS OF: Depression, DENIES: Anxiety, Confusion, Mood changes, Hallucinations, Agitation, Suicidal Ideation, Homicidal Ideation, Delusions Past Family Social History Past Medical History Burkitt Lymphoma IV drug use Polysubstance abuse Past Surgical History Appendectomy Bowel resection Reported Medications Reported Meds & Active Scripts Active Reported Paxil (Paroxetine HCl) 20 Mg Tablet 1 Tab PO DAILY Suboxone Sublingual Film (Buprenorphine-Naloxone Sublingual Film) 8-2 Mg Film 1 Film SL BID Unique ID number required: Allergies: Coded Allergies: Azithromycin (Verified Allergy, Severe, HIVES, 01/19/17) Bactrim (Verified Allergy, Severe, NASIR JOE SYNDROME, 01/19/17) Ceftazidime (Verified Allergy, Severe, NASIR-JOE SYNDROME, 01/19/17) Clindamycin (Verified Allergy, Severe, HIVES, 01/19/17) Contrast Media (Verified Allergy, Severe, THROAT CLOSE, 01/19/17) Rifampin (Verified Allergy, Severe, NASIR-JOE SYNDROME, 01/19/17) Primaxin (Verified Allergy, Mild, UNSURE, 01/19/17) Tramadol (Verified Allergy, Unknown, seizure with ssri, 01/19/17) Morphine (Verified Adverse Reaction, Severe, NAUSEA, 01/19/17) PT STATES SEVERE NAUSEA *MDRO Multi-Drug Resistant Organism (Verified Adverse Reaction, Unknown, ) MRSA (hand wound) - 01/2016 Family History Reviewed and unremarkable Social History Patient does smoke a pack a cigarettes a day since she was about 17 years old. Denies any alcohol use. She is an IV drug user, Dilaudid is her drug of choice. Records indicate that her drug screens are usually positive for cocaine. Physical Exam Vital Signs Vital Signs Date Time Temp Pulse Resp B/P Pulse Ox O2 Delivery O2 Flow Rate FiO2 01/19/17 17:12 90 18 103/56 94 Room Air 01/19/17 15:37 99 Room Air 01/19/17 15:37 Room Air 01/19/17 15:31 98 Room Air 01/19/17 15:10 99.0 121 16 113/67 100 Physical Exam GENERAL: Well-developed, well-nourished, in no acute distress. alert and orientated. Very pale and looks like a ghost HEENT: Head is normocephalic without any lesions or masses noted. Facial features are symmetric. Eyes: Pupils equal round reactive to light. Extraocular muscles are intact. Conjunctivae was pale but clear. Oropharyngeal: Pharynx without any erythema edema. Tongue is midline without deviation. Buccal mucosa is moist without any masses or lesions NECK: Supple without any masses. Trachea midline no deviation. No JVD, no bruits are appreciated CARDIAC: Regular rhythm, regular rate. S1/S2 are heard. No murmurs gallops or rubs. LUNGS: Clear to auscultation bilaterally. No wheeze, rhonchi or rales. No use of accessory muscles on inspiration or expiration. ABDOMEN: Soft, nontender. Nondistended. Bowel sounds heard in all 4 quadrants. No organomegaly or masses. Negative rebound, negative guarding EXTREMITIES: No edema, pulses are equal bilaterally. No cyanosis or clubbing NEUROLOGY: Mood and affect appear appropriate. Cranial nerves II through XII grossly intact. Muscle strength 5/5 in upper and lower extremities bilaterally. Deep tendon reflexes are 2+ in upper and lower extremities bilaterally. RIGHT HAND: There is a bandage with drainage noted over the area between the first and second digit Laboratory Laboratory Tests Test 01/19/17 01/19/17 16:53 16:55 Lactic Acid Level 0.7 White Blood Count 5.3 Red Blood Count 1.15 Hemoglobin 5.0 Hematocrit 14.7 Mean Corpuscular Volume 127.1 Mean Corpuscular Hemoglobin 43.2 Mean Corpuscular Hemoglobin 34.0 Concent Red Cell Distribution Width 21.8 Platelet Count 256 Mean Platelet Volume 7.7 Neutrophils (%) (Auto) 57.7 Lymphocytes (%) (Auto) 34.6 Monocytes (%) (Auto) 4.1 Eosinophils (%) (Auto) 3.1 Basophils (%) (Auto) 0.5 Neutrophils # (Auto) 3.1 Lymphocytes # (Auto) 1.8 Monocytes # (Auto) 0.2 Eosinophils # (Auto) 0.2 Basophils # (Auto) 0.0 CBC Comment AUTO DIFF Differential Comment AUTO DIFF CONFIRMED Tear Drop Cells 2+ Ovalocytes 1+ Stomatocytes 1+ Helmet Cells 1+ Keratocytes 1+ Sodium Level 140 Potassium Level 3.5 Chloride Level 105 Carbon Dioxide Level 27.0 Anion Gap 8 Blood Urea Nitrogen 10 Creatinine 0.72 Estimat Glomerular Filtration 92 Rate Random Glucose 92 Calcium Level 8.3 Total Bilirubin 0.6 Aspartate Amino Transf 104 (AST/SGOT) Alanine Aminotransferase 72 (ALT/SGPT) Alkaline Phosphatase 89 Total Protein 7.3 Albumin 4.1 Date/Time Procedure Status Source Growth 01/19/17 18:11 Gram Stain Received Wound Hand Pending 01/19/17 18:11 Wound Culture Received Wound Hand Pending 01/19/17 17:02 Aerobic Blood Culture Received Blood Peripheral Pending 01/19/17 17:02 Anaerobic Blood Culture Received Blood Peripheral Pending Result Diagram: 01/19/17 1655 01/19/17 1655 Septic Shock Reassessment Heart: Regular rate and rhythm Lungs: Clear Skin: Moist Peripheral Pulses: Bounding Right Radial Bounding Left Radial Capillary Refill: <2 seconds Assessment and Plan Assessment and Plan //Severe anemia with hematochezia -Transfusing 2 units packed red blood cells at this time -Continue monitor hemoglobin and transfuse to keep hemoglobin above 8.0 -GI consulted for evaluation, patient will need endoscopy -Anemia studies have been requested //Right hand abscess secondary to IV drug use -Formal incision and drainage was performed by an ER physician -Patient started empirically on vancomycin -Continue follow cultures and adjust antibiotics appropriately //Elevated liver enzymes -Patient is IV drug user, check hepatitis profile //DVT prevention -Sequential compression devices, avoid chemical prophylaxis secondary to GI bleed Discussed Condition With patient, nurse, ED physician This note was transcribed by scribe [Garfield Alvarado]. I, Dr. Andre Valenzuela personally performed the history, physical exam, and medical decision making; and confirmed the accuracy of the information in the transcribed note. Authenticated by Dr. Andre Valenzuela on 01/20/17 at 08:25. Physician Certification 2 Midnight Certification Type: Admission for Inpatient Services Order for Inpatient Services The services are ordered in accordance with Medicare regulations or non- Medicare payer requirements, as applicable. In the case of services not specified as inpatient-only, they are appropriately provided as inpatient services in accordance with the 2-midnight benchmark. Estimated LOS (days): 2 days is the estimated time the patient will need to remain in the hospital, assuming treatment plan goals are met and no additional complications. Post-Hospital Plan: Not yet determined Garfield Alvarado Jan 19, 2017 18:42 Andre Valenzuela MD Jan 20, 2017 08:28
[2017-01-19] MEDS ORDERED: ACETAMINOPHEN/HYDROcodone 325 MG/5 MG TAB PO PRN (19:00)
[2017-01-19] MEDS ORDERED: ACETAMINOPHEN/HYDROcodone 325 MG/10 MG TAB PO PRN (19:00)
[2017-01-19] MEDS: SODIUM CHLOR 0.9% 1000 ML INJ 1,000 ML IV SCH ×2 (19:30→23:32)
[2017-01-19] MEDS ORDERED: LACTULOSE SYRUP 20 GM/30 ML CUP PO PRN (20:00)
[2017-01-19] MEDS ORDERED: BISACODYL 10 MG SUPP RECTAL PRN (20:00)
[2017-01-19 20:40] LABS: RETIC % 3.5 % (0.4-3.0)
[2017-01-19 20:46] LABS: REVIEW FLAG FINAL
[2017-01-19] MEDS ORDERED: MAGNESIUM HYDROXIDE SUSP 30 ML CUP PO PRN (21:00)
[2017-01-19] MEDS ORDERED: SENNOSIDES 8.6 MG TAB PO PRN (21:00)
[2017-01-19] MEDS ORDERED: PATIENT OWN NARCOTIC MED 1 SL SCH (21:00)
[2017-01-19] MEDS: DOCUSATE SODIUM 50 MG/SENNA 8.6 MG TAB PO SCH (21:00)
[2017-01-19 21:22] LABS: FERRITIN 101 NG/ML (8-252); TRANSFERRIN IRON PROFILE 227 MG/DL (200-360)
[2017-01-19] MEDS: SODIUM CHLORIDE 0.9% FLUSH 10 ML FLUSH IV FLUSH SCH (23:32)
[2017-01-20] VITALS (14 sets, daily range): BP systolic 92–121; BP diastolic 58–93; PULSE 9–107; RESP 16–20; TEMP 97.6–99; O2SAT 89–100
[2017-01-20] MEDS: PANTOPRAZOLE SODIUM 40 MG VIAL IV PUSH SCH ×2 (02:04→08:50)
[2017-01-20 07:07] LABS: AUTOMATED NEUTROPHIL # 2.7 TH/MM3 (1.8-7.7); BASOPHIL # 0.1 TH/MM3 (0-0.2); BASOPHIL % 0.9 % (0.0-2.0); EOSINOPHIL # 0.2 TH/MM3 (0-0.4); EOSINOPHIL % 4.2 % (0.0-4.0); HEMATOCRIT 21.9 % (35.0-46.0); LYMPH % 43.7 % (9.0-44.0); LYMPHOCYTE # 2.5 TH/MM3 (1.0-4.8); MEAN CORPUSCULAR HEMOGLOBIN 33.1 PG (27.0-34.0); MEAN CORPUSCULAR HGB CONC 33.5 % (32.0-36.0); MONO % 3.8 % (0.0-8.0); NEUT % 47.4 % (16.0-70.0); PLATELET COUNT 257 TH/MM3 (150-450); RED BLOOD COUNT 2.21 MIL/MM3 (4.00-5.30); RED CELL DISTRIBUTION WIDTH 40.1 % (11.6-17.2); WHITE BLOOD COUNT 5.7 TH/MM3 (4.0-11.0)
[2017-01-20 07:13] LABS: CHLORIDE 107 MEQ/L (98-107); POTASSIUM 3.6 MEQ/L (3.5-5.1); SODIUM (NA) 141 MEQ/L (136-145)
[2017-01-20 07:19] LABS: ANION GAP 7 MEQ/L (5-15); BICARBONATE 26.7 MEQ/L (21.0-32.0); BLOOD UREA NITROGEN 8 MG/DL (7-18); HEMO FLAGS AUTO DIFF
[2017-01-20 07:22] LABS: ALT (GPT) 70 U/L (10-53); AST (GOT) 101 U/L (15-37); GLOMERULAR FILTRATION RATE 88 ML/MIN (>89)
[2017-01-20 07:25] LABS: ALKALINE PHOSPHATASE 89 U/L (45-117)
[2017-01-20 07:52] LABS: HELMET CELLS OCC (NORMAL); KERATOCYTES 1+ (NORMAL); OVALOCYTES 1+ (NORMAL); SCAN/DIFF AUTO DIFF CONFIRMED; TARGET CELLS 1+ (NORMAL); TEARDROP RBCS 1+ (NORMAL)
[2017-01-20] MEDS: DOCUSATE SODIUM 50 MG/SENNA 8.6 MG TAB PO SCH (08:49)
[2017-01-20] MEDS: SODIUM CHLORIDE 0.9% FLUSH 10 ML FLUSH IV FLUSH SCH (08:51)
[2017-01-20] MEDS: SODIUM CHLOR 0.9% 1000 ML INJ 1,000 ML IV SCH (08:54)
[2017-01-20] MEDS ORDERED: PARoxetine HCL 20 MG TAB PO SCH (09:00)
[2017-01-20] MEDS ORDERED: CYANOCOBALAMIN 1000 MCG/ML VIAL IM SCH (09:00)
[2017-01-20] MEDS ORDERED: Vancomycin Consult Pharmacy 1 EA OTHER SCH (09:15)
[2017-01-20] MEDS ORDERED: NALOXONE SL SCH (09:20)
[2017-01-20] MEDS ORDERED: BUPRENORPHINE SL SCH (09:20)
[2017-01-20] MEDS ORDERED: VANCOMYCIN INJ 1,000 MG in SODIUM CHLOR 0.9% 250 ML INJ 250 ML IV SCH ×2 (10:00→19:00)
[2017-01-20] MEDS ORDERED: FUROSEMIDE 20 MG/2 ML VIAL IV ONE (12:15)
[2017-01-20] MEDS ORDERED: SODIUM CHLOR 0.9% 250 ML INJ 250 ML IV ONE (12:15)
--- NOTE | 2017-01-20 14:10 | HHI.PR ---
Subjective Remarks Written by Garfield Alvarado, acting as scribe for Dr. Valenzuela on 01/20/17 at 14: 05. Patient seen and examined today with Dr. Valenzuela. Patient appears to be doing much better. She states that she is having more energy. Awaiting GI for further evaluation. Patient denies any recurrent hematochezia. Objective Vitals Vital Signs Date Time Temp Pulse Resp B/P Pulse Ox O2 Delivery O2 Flow Rate FiO2 01/20/17 12:00 98.0 91 18 106/71 100 01/20/17 08:00 98.3 90 18 113/78 100 01/20/17 08:00 98.3 90 18 113/78 100 01/20/17 04:28 97.9 92 18 98/58 99 01/20/17 02:48 97.9 9 18 93/61 98 01/20/17 02:33 99.0 91 18 96/65 97 01/20/17 02:03 98.7 94 18 100/63 99 01/20/17 00:00 98.6 98 16 106/64 99 01/19/17 23:15 99.4 102 18 111/67 01/19/17 23:00 100 01/19/17 22:58 98.9 100 18 114/66 01/19/17 20:33 90 18 97 01/19/17 20:30 98.3 100 16 106/58 99 01/19/17 19:41 90 Room Air 01/19/17 19:39 90 18 100/54 98 Room Air 01/19/17 17:12 90 18 103/56 94 Room Air 01/19/17 15:37 99 Room Air 01/19/17 15:37 Room Air 01/19/17 15:31 98 Room Air 01/19/17 15:10 99.0 121 16 113/67 100 I/O 01/19/17 01/19/17 01/19/17 01/20/17 01/20/17 01/20/17 07:00 15:00 23:00 07:00 15:00 23:00 Intake Total 420 ml 240 ml Balance 420 ml 240 ml Intake Oral 420 ml 240 ml # Voids 2 7 # Bowel Movements 0 0 Result Diagram: 01/20/17 1100 01/20/17 0530 Objective Remarks GENERAL: Well-developed, well-nourished, in no acute distress. alert and orientated. Patient Ruiz is improving she is not as pale HEENT: Head is normocephalic without any lesions or masses noted. Facial features are symmetric. Eyes: Extraocular muscles are intact. Conjunctivae was pale but clear. Oropharyngeal: Pharynx without any erythema edema. Tongue is midline without deviation. Buccal mucosa is moist without any masses or lesions NECK: Supple without any masses. Trachea midline no deviation. No JVD, CARDIAC: Regular rhythm, regular rate. S1/S2 are heard. No murmurs gallops or rubs. LUNGS: Clear to auscultation bilaterally. No wheeze, rhonchi or rales. No use of accessory muscles on inspiration or expiration. ABDOMEN: Soft, nontender. Nondistended. Bowel sounds heard in all 4 quadrants. No organomegaly or masses. Negative rebound, negative guarding EXTREMITIES: No edema, pulses are equal bilaterally. No cyanosis or clubbing NEUROLOGY: Mood and affect appear appropriate. Cranial nerves II through XII grossly intact. Moving all extremities, speech is clear RIGHT HAND: There is a bandage with drainage noted over the area between the first and second digit Urinary Catheter: No Vascular Central Line Catheter: No A/P Assessment and Plan //Severe anemia with hematochezia -Transfuse 2 units packed red blood cells, will transfuse 1 more unit -Continue monitor hemoglobin and transfuse to keep hemoglobin above 8.0 -GI consulted for evaluation, patient will likely need endoscopy -Anemia studies were performed //B12 deficiency -Likely secondary to previous small bowel resection from Burkitt's lymphoma -Start vitamin B12 1000 g daily for 3 days then monthly //Right hand abscess secondary to IV drug use -Formal incision and drainage was performed by an ER physician -Patient started empirically on vancomycin -Continue follow cultures and adjust antibiotics appropriately //Elevated liver enzymes -Patient is IV drug user, -Hepatitis panel does confirm hepatitis C, check genotype and viral load -Counseled patient on lifestyle modifications, safe sex practices, body fluids, //DVT prevention -Sequential compression devices, avoid chemical prophylaxis secondary to GI bleed Discharge Planning This note was transcribed by elvie [Garfield Alvarado]. I, Dr. Andre Valenzuela personally performed the history, physical exam, and medical decision making; and confirmed the accuracy of the information in the transcribed note. Authenticated by Dr. Andre Valenzuela on 01/20/17 at 22:20. patient with gram-positive cocci on wound culture. We'll need to follow with primary care for this. We'll discharge on doxycycline and amoxicillin. patient says she has injected herself in the past with B12, however had not done so in the past 2 years, will adhere to B12 treatment now. haptoglobin low, however bilirubin normal. Haptoglobin low likely secondary to hepatitis C. Patient made aware. patient declines endoscopy, follow up with primary care for GI referral. patient discharged home in good condition. Continue regular diet. Activity ad neeta. Please see discharge medication reconciliation for medication list. Patient promises she'll no longer use IV drugs, and will follow up with primary care to pursue further treatmentfor addiction, as well as following up her anemia. . Garfield Alvarado Jan 20, 2017 14:10 Andre Valenzuela MD Jan 20, 2017 22:24
--- NOTE | 2017-01-20 15:10 | MB ---
cc: OLE REEDER M.D., JEFFREY D. MD DATE OF CONSULTATION: 01/20/2017 REASON FOR CONSULTATION: Melena and anemia. HISTORY OF PRESENT ILLNESS: Miss Olivier is a 36-year-old lady who basically presents with cellulitis the right upper extremity, this is a site infected from IV drug use. In the emergency room she was found to have a very low hemoglobin, questioning revealed she has been having on and off blood in her bowels for the last three to four months. She tells me that anemia is a chronic problem for her ever since she had Burkitt's lymphoma at 17 years of age requiring surgery. She says she has had multiple previous EGDs and colonoscopy. These have been done at [facility] as well as in [place]. The last one she thinks was maybe about six years ago. REVIEW OF SYSTEMS Review of systems currently no active bleeding. No abdominal pain. No nausea, vomiting. PAST MEDICAL HISTORY Burkitt's Lymphoma. PAST SURGICAL HISTORY Appendectomy. Bowel resection Multiple EGD Colonoscopies in the past. SOCIAL HISTORY Polysubstance abuse. MEDICATIONS On admission 1. Suboxone. 2. Paxil. ALLERGIES ERYTHROMYCIN BACTRIM CLINDAMYCIN CONTRAST RIFAMPIN MORPHINE FAMILY HISTORY: Family history is noncontributory. SOCIAL HISTORY The patient is a smoker. Denies alcohol, is an IV drug user and drug screen positive for cocaine and Dilaudid. PHYSICAL EXAMINATION: IN GENERAL: The physical examination reveals a well-nourished lady in no apparent distress. VITAL SIGNS: Stable. HEAD, EYES, EARS, NOSE, AND THROAT: Head and neck examination anicteric sclerae. CHEST: Bilateral air entry with rales. ABDOMEN: Soft, nontender. No hepatosplenomegaly. Bowel sounds are present. CENTRAL NERVOUS SYSTEM: Exam is nonfocal. RECTUM: Rectal exam deferred at this time. LABORATORY FINDINGS: The labs reveal hemoglobin of 7.6 with an MCV of 99, INR is one, creatinine 0.75, AST and ALT are 101 and 70. Hepatitis test is positive. IMPRESSION Anemia and melena. RECOMMENDATIONS: The patient tells me that she has chronic anemia which was attributed to vitamin B12 deficiency. In addition, she is complaining of some intermittent bleeding. There is no evidence of active bleeding at this time. I would recommend Protonix daily. Transfuse as necessary. Esophagogastroduodenoscopy and colonoscopy discussed with the patient. She is not too keen on doing any procedures at this time. I advised her that if there is evidence of further bleeding or if her hemoglobin drops at recent endoscopy should be entertained. She is willing to take this under advisement. Dr. Cortés will follow. MD CORRY Esquivel/karen /2:47 PM /2:54 PM
[2017-01-20] MEDS ORDERED: diphenhydrAMINE HCL 25 MG CAP PO ONE (18:00)
[2017-01-20] MEDS ORDERED: DOXY100C PO (18:05)
[2017-01-20] MEDS ORDERED: AMOX875T PO (18:05)
[2017-01-20] MEDS ORDERED: [UNRECOGNIZED DRUG - CODE] PO (18:07)
--- NOTE | 2017-01-20 18:08 | HHI.DCPOC ---
Discharge Care Plan Diagnosis: (1) Abscess of hand, right (2) Symptomatic anemia Goals to Promote Your Health * To prevent worsening of your condition and complications * To maintain your health at the optimal level Directions to Meet Your Goals Take your medications as prescribed Follow your dietary instruction Follow activity as directed Keep your appointments as scheduled Take your immunizations and boosters as scheduled If your symptoms worsen call your PCP, if no PCP go to Urgent Care Center or Emergency Room Smoking is Dangerous to Your Health. Avoid second hand smoke Call the 24-hour hour crisis hotline for domestic abuse at Garfield Alvarado Jan 20, 2017 18:07
[2017-01-22] MEDS ORDERED: PHARMACY ORDERED LAB ONE (15:45)
[2017-01-25 11:53] LABS: HCV RNA PCR IU/ML LESS THAN 15 IU/mL (()); HCV RNA PCR LOGIU/ML LESS THAN 1.18 (())
[2017-01-25 17:52] LABS: HEPATITIS C RNA GENOTYPE NOT DETECTED (())
== END 2017-01-20 21:30 | disposition home or self-care (01) | DRG 378 ==
LOC: PHED 15:08 → PHEDA 18:13 → PH3A 20:30
PROVIDERS: ADMIT Internal Medicine; ATTEND Internal Medicine
PROC: 30253N1 (ICD-10-PCS; principal; 2017-01-19)
DX: K92.1 Melena (principal); L02.511 Cutaneous abscess of right hand; E53.8 Deficiency of other specified B group vitamins; L03.113 Cellulitis of right upper limb; B19.20 Unspecified viral hepatitis C without hepatic coma; D64.9 Anemia, unspecified; F14.10 Cocaine abuse, uncomplicated; F19.90 Other psychoactive substance use, unspecified, uncomplicated; F17.200 Nicotine dependence, unspecified, uncomplicated; Z85.72 Personal history of non-Hodgkin lymphomas
CPT/HCPCS: 10061; 36000; 36430; 80053; 80074; 82607; 82728; 82746; 83010; 83540; 83550; 83605; 83921; 85018; 85025; 85044; 85060; 85384; 85610; 85730; 86403; 86850; 86900; 86901; 86920; 87040; 87070; 87186; 87205; 87522; 87902; 96360; C9113; J2543; J3370; J3420; J7030; J7050; P9016

== ENCOUNTER 2017-06-16 20:23 | Emergency (ER) | payer SELFPAY ==
[~2017-06-16 20:23] MED LIST changes: +AMOX875T PO; -BUPR4MIS SL; +CYAN100042 PO; +DOXY100C PO; -PAXI20TA PO; +PAXI20TA26 PO; -PENI250T59 PO; +SUBO8MIS SL
[2017-06-16 20:26] VITALS: BP 130/71; PULSE 115; RESP 22; TEMP 98.1; O2SAT 97
--- NOTE | 2017-06-16 20:52 | PD ---
HPI Chief Complaint: ENT Complaint Time Seen by Provider: 20:49 Travel History International Travel<30 days: No Contact w/Intl Traveler<30days: No Traveled to known affect area: No 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) Kidney Stones: Yes (when 19 y.o ) Musculoskeletal: Yes Neurologic: Yes Psychiatric: Yes Reproductive: No Respiratory: Yes Immunizations Current: Yes Migraines: No Pneumonia: Yes Radiation Therapy: No Renal Failure: No Seizures: Yes (due to meds that were combo of ultram and paxil) Shingles: Yes Sickle Cell Disease: No Sleep Apnea: No Thyroid Disease: No Ulcer: No Influenza Vaccination: No ?: Not LMP: on period now : 0 Past Surgical History Abdominal Surgery: Yes (appy/ removed tumor 2 1/2 feet of small intestine) AICD: No Appendectomy: Yes Arteriovenous Shunt: No Body Medical Devices: heart murmur Cardiac Surgery: No Ear Surgery: No Endocrine Surgery: No Eye Surgery: No Genitourinary Surgery: Yes (2 1/2 feet of small intestine removed due to tumor 1997 ) Gynecologic Surgery: No Insulin Pump: No Joint Replacement: No Oral Surgery: No Pacemaker: No Thoracic Surgery: No Other Surgery: Yes Social History Alcohol Use: No Tobacco Use: Yes (1/2 PPD) Substance Use: Yes (opiates) Allergies-Medications (Allergen,Severity, Reaction): Coded Allergies: azithromycin (Unverified Allergy, Severe, HIVES, 06/16/17) ceftazidime (Unverified Allergy, Severe, NASIR-JOE SYNDROME, 06/16/17) clindamycin (Unverified Allergy, Severe, HIVES, 06/16/17) diatrizoate meglumine (Unverified Allergy, Severe, THROAT CLOSE, 06/16/17) gadobenic acid (Unverified Allergy, Severe, THROAT CLOSE, 06/16/17) gadodiamide (Unverified Allergy, Severe, THROAT CLOSE, 06/16/17) gadoteridol (Unverified Allergy, Severe, THROAT CLOSE, 06/16/17) iodixanol (Unverified Allergy, Severe, THROAT CLOSE, 06/16/17) iohexol (Unverified Allergy, Severe, THROAT CLOSE, 06/16/17) rifampin (Unverified Allergy, Severe, NASIR-JOE SYNDROME, 06/16/17) sulfamethoxazole (Unverified Allergy, Severe, NASIR JOE SYNDROME, 06/16/17) trimethoprim (Unverified Allergy, Severe, NASIR JOE SYNDROME, 06/16/17 ) cilastatin (Unverified Allergy, Mild, UNSURE, 06/16/17) imipenem (Unverified Allergy, Mild, UNSURE, 06/16/17) tramadol (Unverified Allergy, Unknown, seizure with ssri, 06/16/17) morphine (Unverified Adverse Reaction, Severe, NAUSEA, 06/16/17) PT STATES SEVERE NAUSEA *MDRO Multi-Drug Resistant Organism (Verified Adverse Reaction, Unknown, 06/16/17) MRSA (hand wound) - 01/2016 & 01/19/17 Reported Meds & Prescriptions Reported Meds & Active Scripts Active B-12 Tr (Cyanocobalamin) 1,000 Mcg Tab 1,000 Mcg PO DAILY Reported Paxil (Paroxetine HCl) 20 Mg Tablet 1 Tab PO DAILY Suboxone Sublingual Film (Buprenorphine-Naloxone Sublingual Film) 8-2 Mg Film 1 Film SL BID Unique ID number required: Review of Systems Except as stated in HPI: all other systems reviewed are Neg Data Data Last Documented VS Vital Signs Date Time Temp Pulse Resp B/P (MAP) Pulse Ox O2 Delivery O2 Flow Rate FiO2 06/16/17 20:26 98.1 115 22 130/71 (90) 97 Thor Vasquez MD Jun 16, 2017 20:52
[2017-06-16] MEDS ORDERED: VALT1TAB PO ×2 (21:05→21:49)
[2017-06-16] MEDS ORDERED: AMOX500C PO (21:05)
--- NOTE | 2017-06-16 21:06 | PD ---
HPI Chief Complaint: ENT Complaint Time Seen by Provider: 20:40 Travel History International Travel<30 days: No Contact w/Intl Traveler<30days: No Traveled to known affect area: No History of Present Illness HPI 36-year-old female with chief complaint of sinus pain/pressure and purulent nasal discharge 7 days. Patient is also reporting multiple cold sores 7 days. Patient denies fever or chills. No alleviating factors. Symptoms severity is moderate. 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) Kidney Stones: Yes (when 19 y.o ) Musculoskeletal: Yes Neurologic: Yes Psychiatric: Yes Reproductive: No Respiratory: Yes Immunizations Current: Yes Migraines: No Pneumonia: Yes Radiation Therapy: No Renal Failure: No Seizures: Yes (due to meds that were combo of ultram and paxil) Shingles: Yes Sickle Cell Disease: No Sleep Apnea: No Thyroid Disease: No Ulcer: No Influenza Vaccination: No ?: Not LMP: on period now : 0 Past Surgical History Abdominal Surgery: Yes (appy/ removed tumor 2 1/2 feet of small intestine) AICD: No Appendectomy: Yes Arteriovenous Shunt: No Body Medical Devices: heart murmur Cardiac Surgery: No Ear Surgery: No Endocrine Surgery: No Eye Surgery: No Genitourinary Surgery: Yes (2 1/2 feet of small intestine removed due to tumor 1997 ) Gynecologic Surgery: No Insulin Pump: No Joint Replacement: No Oral Surgery: No Pacemaker: No Thoracic Surgery: No Other Surgery: Yes Social History Alcohol Use: No Tobacco Use: Yes (1/2 PPD) Substance Use: Yes (opiates) Allergies-Medications (Allergen,Severity, Reaction): Coded Allergies: azithromycin (Unverified Allergy, Severe, HIVES, 06/16/17) ceftazidime (Unverified Allergy, Severe, NASIR-JOE SYNDROME, 06/16/17) clindamycin (Unverified Allergy, Severe, HIVES, 06/16/17) diatrizoate meglumine (Unverified Allergy, Severe, THROAT CLOSE, 06/16/17) gadobenic acid (Unverified Allergy, Severe, THROAT CLOSE, 06/16/17) gadodiamide (Unverified Allergy, Severe, THROAT CLOSE, 06/16/17) gadoteridol (Unverified Allergy, Severe, THROAT CLOSE, 06/16/17) iodixanol (Unverified Allergy, Severe, THROAT CLOSE, 06/16/17) iohexol (Unverified Allergy, Severe, THROAT CLOSE, 06/16/17) rifampin (Unverified Allergy, Severe, NASIR-JOE SYNDROME, 06/16/17) sulfamethoxazole (Unverified Allergy, Severe, NASIR JOE SYNDROME, 06/16/17) trimethoprim (Unverified Allergy, Severe, NASIR JOE SYNDROME, 06/16/17 ) cilastatin (Unverified Allergy, Mild, UNSURE, 06/16/17) imipenem (Unverified Allergy, Mild, UNSURE, 06/16/17) tramadol (Unverified Allergy, Unknown, seizure with ssri, 06/16/17) morphine (Unverified Adverse Reaction, Severe, NAUSEA, 06/16/17) PT STATES SEVERE NAUSEA *MDRO Multi-Drug Resistant Organism (Verified Adverse Reaction, Unknown, 06/16/17) MRSA (hand wound) - 01/2016 & 01/19/17 Reported Meds & Prescriptions Reported Meds & Active Scripts Active B-12 Tr (Cyanocobalamin) 1,000 Mcg Tab 1,000 Mcg PO DAILY Reported Paxil (Paroxetine HCl) 20 Mg Tablet 1 Tab PO DAILY Suboxone Sublingual Film (Buprenorphine-Naloxone Sublingual Film) 8-2 Mg Film 1 Film SL BID Unique ID number required: Review of Systems Except as stated in HPI: all other systems reviewed are Neg General / Constitutional: Positive: Chills HENT: No: Headaches Cardiovascular: No: Chest Pain or Discomfort Respiratory: No: Shortness of Breath Gastrointestinal: No: Abdominal Pain Physical Exam Narrative GENERAL: Well-nourished, well-developed patient. SKIN: Focused skin assessment warm/dry. 3 lesions consistent with herpes labialis to the right upper lip. HEAD: Normocephalic. TTP to the maxillary sinuses. EYES: No scleral icterus. No injection or drainage. NECK: Supple, trachea midline. No JVD or lymphadenopathy. CARDIOVASCULAR: Regular rate and rhythm without murmurs, gallops, or rubs. RESPIRATORY: Breath sounds equal bilaterally. No accessory muscle use. GASTROINTESTINAL: Abdomen soft, non-tender, nondistended. Data Data Last Documented VS Vital Signs Date Time Temp Pulse Resp B/P (MAP) Pulse Ox O2 Delivery O2 Flow Rate FiO2 06/16/17 20:26 98.1 115 22 130/71 (90) 97 MDM Medical Decision Making Medical Screen Exam Complete: Yes Emergency Medical Condition: Yes Differential Diagnosis Sinusitis, herpes labialis, URI Narrative Course 36-year-old female with sinus pain and pressure and reported purulent nasal discharge 7 days. Patient also has multiple cold sores to the right upper lip. Patient's vital signs are stable. She is nontoxic appearing. She will be treated for sinusitis and herpes labialis. Diagnosis Primary Impression: Herpes labialis Additional Impression: Sinusitis Qualified Codes: J01.00 - Acute maxillary sinusitis, unspecified Referrals: Primary Care Physician Additional Instructions: Take the medication as prescribed. Stay well hydrated by drinking plenty of fluids. Follow-up with her primary doctor Scripts Valacyclovir (Valtrex) 1,000 Mg Tab 2000 MG PO BID for Mgmt Viral Infection for 1 Day, #1 TAB 0 Refills Prov: Valeria Crowell 06/16/17 Amoxicillin (Amoxicillin) 500 Mg Cap 500 MG PO TID for Infection for 10 Days, CAP 0 Refills Prov: Valeria Crowell 06/16/17 Disposition: 01 DISCHARGE HOME Condition: Stable Valeria Crowell Jun 16, 2017 21:06
== END 2017-06-16 21:18 | disposition home or self-care (01) ==
LOC: PHEFT 20:23
DX: B00.1 Herpesviral vesicular dermatitis (principal); J01.00 Acute maxillary sinusitis, unspecified; F17.200 Nicotine dependence, unspecified, uncomplicated
CPT/HCPCS: 99284

== ENCOUNTER 2017-11-11 08:30 | Emergency (ER) | payer SELFPAY ==
[~2017-11-11] VITALS: Ht 165.1 cm; Wt 49.0 kg
[~2017-11-11 08:30] MED LIST changes: +AMOX500C PO; -AMOX875T PO; -DOXY100C PO; +VALT1TAB PO
[2017-11-11 08:40] VITALS: BP 115/65; PULSE 94; RESP 16; TEMP 98.2; O2SAT 98
[2017-11-11] MEDS ORDERED: AMOX500C PO (09:22)
--- NOTE | 2017-11-11 09:23 | PD ---
HPI Chief Complaint: Oral / Dental Pain or Problem Time Seen by Provider: 09:07 Travel History International Travel<30 days: No Contact w/Intl Traveler<30days: No Traveled to known affect area: No History of Present Illness HPI 37-year-old female here with left lower dental pain and facial swelling 3 days. She denies fever chills. She has pain with hot and cold fluids and chewing. Symptom severity is moderate. No alleviating factors. No difficulty swallowing or change in voice. 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) Kidney Stones: Yes (when 19 y.o ) Musculoskeletal: Yes Neurologic: Yes Psychiatric: Yes Reproductive: No Respiratory: Yes Immunizations Current: Yes Migraines: No Pneumonia: Yes Radiation Therapy: No Renal Failure: No Seizures: Yes (due to meds that were combo of ultram and paxil) Shingles: Yes Sickle Cell Disease: No Sleep Apnea: No Thyroid Disease: No Ulcer: No Tetanus Vaccination: < 5 Years Influenza Vaccination: No ?: Not LMP: 11/06/16 : 0 Past Surgical History Abdominal Surgery: Yes (appy/ removed tumor 2 1/2 feet of small intestine) AICD: No Appendectomy: Yes Arteriovenous Shunt: No Body Medical Devices: heart murmur Cardiac Surgery: No Ear Surgery: No Endocrine Surgery: No Eye Surgery: No Genitourinary Surgery: Yes (2 1/2 feet of small intestine removed due to tumor 1997 ) Gynecologic Surgery: No Insulin Pump: No Joint Replacement: No Oral Surgery: No Pacemaker: No Thoracic Surgery: No Other Surgery: Yes Social History Alcohol Use: No Tobacco Use: Yes (1/2 PPD) Substance Use: No (HX of opiates) Allergies-Medications (Allergen,Severity, Reaction): Coded Allergies: azithromycin (Unverified Allergy, Severe, HIVES, 11/11/17) ceftazidime (Unverified Allergy, Severe, NASIR-JOE SYNDROME, 11/11/17) clindamycin (Unverified Allergy, Severe, HIVES, 11/11/17) diatrizoate meglumine (Unverified Allergy, Severe, THROAT CLOSE, 11/11/17) gadobenic acid (Unverified Allergy, Severe, THROAT CLOSE, 11/11/17) gadodiamide (Unverified Allergy, Severe, THROAT CLOSE, 11/11/17) gadoteridol (Unverified Allergy, Severe, THROAT CLOSE, 11/11/17) iodixanol (Unverified Allergy, Severe, THROAT CLOSE, 11/11/17) iohexol (Unverified Allergy, Severe, THROAT CLOSE, 11/11/17) rifampin (Unverified Allergy, Severe, NASIR-JOE SYNDROME, 11/11/17) sulfamethoxazole (Unverified Allergy, Severe, NASIR JOE SYNDROME, ) trimethoprim (Unverified Allergy, Severe, NASIR JOE SYNDROME, 11/11/17 ) cilastatin (Unverified Allergy, Mild, UNSURE, 11/11/17) imipenem (Unverified Allergy, Mild, UNSURE, 11/11/17) tramadol (Unverified Allergy, Unknown, seizure with ssri, 11/11/17) morphine (Unverified Adverse Reaction, Severe, NAUSEA, 11/11/17) PT STATES SEVERE NAUSEA *MDRO Multi-Drug Resistant Organism (Verified Adverse Reaction, Unknown, ) MRSA (hand wound) - 01/2016 & 01/19/17 Reported Meds & Prescriptions Reported Meds & Active Scripts Active Reported Paxil (Paroxetine HCl) 20 Mg Tablet 1 Tab PO DAILY Suboxone Sublingual Film (Buprenorphine-Naloxone Sublingual Film) 8-2 Mg Film 1 Film SL BID Unique ID number required: Physical Exam Narrative GENERAL: Alert and well appearing 37-year-old female SKIN: Warm and dry. HEAD: Normocephalic. Mild swelling to the left lower jawline EYES: No injection or drainage. MOUTH: Widespread dental decay. Decayed and fractured left lower molars with surrounding gum erythema. No swelling of the floor the mouth. Uvula is midline. Airways patent. NECK: Supple, trachea midline. No lymphadenopathy. Data Data Last Documented VS Vital Signs Date Time Temp Pulse Resp B/P (MAP) Pulse Ox O2 Delivery O2 Flow Rate FiO2 11/11/17 08:40 98.2 94 16 115/65 (82) 98 MDM Medical Decision Making Medical Screen Exam Complete: Yes Emergency Medical Condition: Yes Differential Diagnosis Dental abscess, periodontal disease, dental caries Narrative Course 37-year-old female here with dental abscess. She is nontoxic appearing. She will be treated with amoxicillin and meloxicam. She is instructed to follow-up with her dentist Diagnosis Primary Impression: Dental abscess Referrals: Dentist Additional Instructions: Antibiotics as directed. Ibuprofen 800 mg every 6 hours as needed for pain Follow up with your dentist. Scripts Amoxicillin (Amoxicillin) 500 Mg Cap 500 MG PO TID for Infection for 10 Days, CAP 0 Refills Prov: Valeria Crowell 11/11/17 Disposition: 01 DISCHARGE HOME Condition: Stable Valeria Crowell Nov 11, 2017 09:23
== END 2017-11-11 09:32 | disposition home or self-care (01) ==
LOC: PHED 08:30 → PHEFT 09:32
DX: K04.7 Periapical abscess without sinus (principal); D64.9 Anemia, unspecified; F41.9 Anxiety disorder, unspecified; F32.9 Major depressive disorder, single episode, unspecified; R56.9 Unspecified convulsions; F17.200 Nicotine dependence, unspecified, uncomplicated; Z87.2 Personal history of diseases of the skin and subcutaneous tissue; Z87.442 Personal history of urinary calculi; Z79.899 Other long term (current) drug therapy
CPT/HCPCS: 99283

== ENCOUNTER 2017-12-21 00:02 | Emergency (ER) | payer SELFPAY ==
[~2017-12-21] VITALS: Ht 165.1 cm; Wt 49.7 kg
[~2017-12-21 00:02] MED LIST changes: -CYAN100042 PO; -VALT1TAB PO
[2017-12-21 00:08] VITALS: BP 124/74; PULSE 119; RESP 18; TEMP 99.2; O2SAT 98
[2017-12-21] MEDS ORDERED: PENI500T PO (00:36)
[2017-12-21] MEDS ORDERED: METR-1 PO (00:36)
--- NOTE | 2017-12-21 00:37 | PD ---
HPI . Right cheek swelling Chief Complaint: Cheek swelling Time Seen by Provider: 00:20 Travel History International Travel<30 days: No Contact w/Intl Traveler<30days: No History of Present Illness HPI Patient presents with chief complaint of swelling of her right cheek. She states that she underwent chemotherapy several years ago which has resulted in very poor dentition. She states that she needs to have all of her teeth removed. As a result, she has frequent dental abscesses. She also reports multiple drug allergies. Onset of symptoms was yesterday. Symptoms are mild with no modifying factors. 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) Kidney Stones: Yes (when 19 y.o ) Musculoskeletal: Yes Neurologic: Yes Psychiatric: Yes Reproductive: No Respiratory: Yes Immunizations Current: Yes Migraines: No Pneumonia: Yes Radiation Therapy: No Renal Failure: No Seizures: Yes (due to meds that were combo of ultram and paxil) Shingles: Yes Sickle Cell Disease: No Sleep Apnea: No Thyroid Disease: No Ulcer: No : 0 Past Surgical History Abdominal Surgery: Yes (appy/ removed tumor 2 1/2 feet of small intestine) AICD: No Appendectomy: Yes Arteriovenous Shunt: No Body Medical Devices: heart murmur Cardiac Surgery: No Ear Surgery: No Endocrine Surgery: No Eye Surgery: No Genitourinary Surgery: Yes (2 1/2 feet of small intestine removed due to tumor 1997 ) Gynecologic Surgery: No Insulin Pump: No Joint Replacement: No Oral Surgery: No Pacemaker: No Thoracic Surgery: No Other Surgery: Yes Social History Alcohol Use: No Tobacco Use: Yes (1/2 PPD) Substance Use: No (HX of opiates) Allergies-Medications (Allergen,Severity, Reaction): Coded Allergies: azithromycin (Unverified Allergy, Severe, HIVES, 11/11/17) ceftazidime (Unverified Allergy, Severe, NASIR-JOE SYNDROME, 11/11/17) clindamycin (Unverified Allergy, Severe, HIVES, 11/11/17) diatrizoate meglumine (Unverified Allergy, Severe, THROAT CLOSE, 11/11/17) gadobenic acid (Unverified Allergy, Severe, THROAT CLOSE, 11/11/17) gadodiamide (Unverified Allergy, Severe, THROAT CLOSE, 11/11/17) gadoteridol (Unverified Allergy, Severe, THROAT CLOSE, 11/11/17) iodixanol (Unverified Allergy, Severe, THROAT CLOSE, 11/11/17) iohexol (Unverified Allergy, Severe, THROAT CLOSE, 11/11/17) rifampin (Unverified Allergy, Severe, NASIR-JOE SYNDROME, 11/11/17) sulfamethoxazole (Unverified Allergy, Severe, NASIR JOE SYNDROME, ) trimethoprim (Unverified Allergy, Severe, NASIR JOE SYNDROME, 11/11/17 ) cilastatin (Unverified Allergy, Mild, UNSURE, 11/11/17) imipenem (Unverified Allergy, Mild, UNSURE, 11/11/17) tramadol (Unverified Allergy, Unknown, seizure with ssri, 11/11/17) morphine (Unverified Adverse Reaction, Severe, NAUSEA, 11/11/17) PT STATES SEVERE NAUSEA *MDRO Multi-Drug Resistant Organism (Verified Adverse Reaction, Unknown, ) MRSA (hand wound) - 01/2016 & 01/19/17 Reported Meds & Prescriptions Reported Meds & Active Scripts Active Flagyl (Metronidazole) 500 Mg Tab 500 Mg PO BID 7 Days Penicillin V Potassium 500 Mg Tab 500 Mg PO Q8H 10 Days Amoxicillin 500 Mg Cap 500 Mg PO TID 10 Days Reported Paxil (Paroxetine HCl) 20 Mg Tablet 1 Tab PO DAILY Suboxone Sublingual Film (Buprenorphine-Naloxone Sublingual Film) 8-2 Mg Film 1 Film SL BID Unique ID number required: Review of Systems Except as stated in HPI: all other systems reviewed are Neg Physical Exam Narrative GENERAL: Awake and alert and in no acute distress. She smells heavily of alcohol. SKIN: Warm and dry. HEAD: Normocephalic/atraumatic. EYES: Pupils are equal. Extraocular movements are intact. ENT: Extremely poor dentition. Minimal swelling of the right cheek. NECK: Normal range of motion. CARDIOVASCULAR: Regular rate and rhythm. RESPIRATORY: Nonlabored respirations. MUSCULOSKELETAL: Atraumatic. NEUROLOGICAL: Nonfocal. PSYCHIATRIC: Appropriate mood and affect. Data Data Last Documented VS Vital Signs Date Time Temp Pulse Resp B/P (MAP) Pulse Ox O2 Delivery O2 Flow Rate FiO2 12/21/17 00:08 99.2 119 18 124/74 (91) 98 Orders Orders Penicillin V Potassium (Veetids) (12/21/17 00:45) Metronidazole (Flagyl) (12/21/17 00:45) Ed Discharge Order (12/21/17 00:36) [facility] Medical Decision Making Medical Screen Exam Complete: Yes Emergency Medical Condition: Yes Medical Record Reviewed: Yes (She has a history of IV drug abuse. I do not see any evidence for treatment of lymphoma in our system.) Differential Diagnosis Differential diagnosis of a toothache includes but is not limited to dental caries, dental abscess, gingivitis, drug-seeking behavior. Narrative Course This patient presents with the chief complaint of right cheek swelling which she presumes is secondary to poor dentition. That is, she believes that she has a dental abscess. She reports numerous drug allergies. I have queried up- to-date regarding appropriate antibiotic treatment. Up-to-date recommends penicillin and Flagyl. She lists an allergy to imipenem but not to penicillin. Diagnosis Primary Impression: Dental abscess Additional Instructions: Follow up with a dentist Scripts Metronidazole (Flagyl) 500 Mg Tab 500 MG PO BID for Infection for 7 Days, #14 TAB 0 Refills Prov: Maira Segundo MD 12/21/17 Penicillin V Potassium (Penicillin V Potassium) 500 Mg Tab 500 MG PO Q8H for Infection for 10 Days, #30 TAB 0 Refills Prov: Maira Segundo MD 12/21/17 Disposition: 01 DISCHARGE HOME Condition: Stable Maira Segundo MD December 21, 2017 00:37
[2017-12-21] MEDS ORDERED: metroNIDAZOLE 500 MG TAB PO ONE (00:45)
[2017-12-21] MEDS ORDERED: PENICILLIN V POTASSIUM 500 MG TAB PO ONE (00:45)
== END 2017-12-21 01:22 | disposition home or self-care (01) ==
LOC: PHED 00:02 → PHEFT 01:22
DX: K04.7 Periapical abscess without sinus (principal); D64.9 Anemia, unspecified; F41.9 Anxiety disorder, unspecified; F32.9 Major depressive disorder, single episode, unspecified; F17.200 Nicotine dependence, unspecified, uncomplicated; Z87.442 Personal history of urinary calculi; Z86.69 Personal history of other diseases of the nervous system and sense organs; Z79.899 Other long term (current) drug therapy; Z88.2 Allergy status to sulfonamides
CPT/HCPCS: 99283